=== PATIENT | female | born 1950 | race Caucasian/White ===

== ENCOUNTER → 2017-07-14 | Outpatient (CLI) | payer MEDICARE, BC ==
--- NOTE | 2017-07-16 11:42 | MM ---
Reason for exam: screening (asymptomatic). Last mammogram was performed 1 year and 8 months ago. History: Patient is postmenopausal. Cancelled Left Mammotome of the left breast, September 06, 2006. Took estrogen for 7 years 7 months beginning at age 50. Took progesterone for 7 years 7 months beginning at age 50. Physical Findings: A clinical breast exam by your physician is recommended on an annual basis and results should be correlated with mammographic findings. MG 3D Screening Mammo W/Cad Bilateral CC and MLO view(s) were taken. Prior study comparison: November 14, 2015, bilateral MG 3d screening mammo w/cad. September 11, 2014, bilateral MG screening mammo w CAD. There are scattered fibroglandular densities. No significant changes when compared with prior studies. ASSESSMENT: Negative, BI-RAD 1 RECOMMENDATION: Routine screening mammogram of both breasts in 1 year.
== END | disposition home or self-care (01) ==
LOC: RADMAMWWP 13:23
PROVIDERS: ATTEND Family Medicine
DX: Z12.31 Encounter for screening mammogram for malignant neoplasm of breast (principal)
CPT/HCPCS: 77063; 77067

== ENCOUNTER → 2018-07-01 | Day surgery (SDC) | payer BC, MEDICARE ==
[2018-06-30 09:32] VITALS: BMI 25.3
[~2018-07-01] MED LIST: LACTATED RINGERS 1,000 ML IV SCH; LIDOCAINE 1% 20 ML VIAL (10MG/ML) FOR IV START INTRADERMA PRN; PROPOFOL 10 MG/ML 20 ML VIAL IV ONE
[2018-07-01 08:50] VITALS: TEMP 97.6
--- NOTE | 2018-07-01 10:14 | P.PCN ---
Date of Procedure: 07/01/18 Procedure(s) Performed: BRIEF HISTORY: Patient is a 67-year-old pleasant 8 female, scheduled for an elective colonoscopy as a part of evaluation of long-standing history of ulcerative colitis/proctitis diagnosed in 2006. She remains in clinical remission. PROCEDURE PERFORMED: Colonoscopy with random biopsies. PREOPERATIVE DIAGNOSIS: Long-standing history of ulcerative colitis/proctitis. IV sedation per Anesthesia. PROCEDURE: After informed consent was obtained, the patient, was brought into the endoscopy unit. IV sedation was administered by Anesthesia under continuous monitoring. Digital rectal examination was normal. Initially the Olympus CF-160 flexible video colonoscope was then inserted in the rectum, gradually advanced into the cecum without any difficulty. Careful examination was performed as the scope was gradually being withdrawn. Ileocecal valve and the appendiceal orifice were visualized and appeared normal. Prep was excellent. Mucosa of the cecum, ascending colon, transverse colon, descending colon, sigmoid colon, and rectum appeared normal. Retroflexion was performed in the rectum and no lesions were seen. Random biopsies were done at every 10 cm intervals from the cecum to the rectum. The patient tolerated the procedure well. IMPRESSION: Normal-appearing colon from rectum to cecum with no evidence of active colitis or colorectal neoplasia . RECOMMENDATIONS: Findings of this examination were discussed with the patient as well as a family. She was advised to follow with the biopsy results and if the biopsy is negative and have a repeat colonoscopy in 2 years.
[2018-07-01 10:34] VITALS: BP 128/72; PULSE 77; RESP 16
== END | disposition home or self-care (01) ==
LOC: ORWHC2ENDO 08:32
PROVIDERS: ATTEND Internal Medicine Gastroenterology
DX: K52.9 Noninfective gastroenteritis and colitis, unspecified (principal); K62.89 Other specified diseases of anus and rectum; I10 Essential (primary) hypertension; Z87.891 Personal history of nicotine dependence; E78.5 Hyperlipidemia, unspecified; M79.7 Fibromyalgia; M19.90 Unspecified osteoarthritis, unspecified site; Z79.1 Long term (current) use of non-steroidal anti-inflammatories (NSAID); Z79.899 Other long term (current) drug therapy
CPT/HCPCS: 88305; 45380; J2704

== ENCOUNTER → 2018-08-05 | Outpatient (CLI) | payer MEDICARE ==
[2018-08-05 13:48] LABS: Appearance,Urine Clear (Clear); Bilirubin,Urine Negative (Negative); Blood,Urine Negative (Negative); Color,Urine Yellow; Glucose,Urine (UA) Negative (Negative); HCT 41.5 % (34.0-46.0); HGB 13.4 gm/dL (11.4-16.0); Ketones,Urine Negative (Negative); Leukocyte Esterase,Urine Negative (Negative); MCH 30.6 pg (25.0-35.0); MCHC 32.4 g/dL (31.0-37.0); MCV 94.7 fL (80.0-100.0); Mean Platelet Volume 7.5; Nitrite,Urine Negative (Negative); Platelet Count 224 k/uL (150-450); Protein,Urine Negative (Negative); RBC 4.38 m/uL (3.80-5.40); RDW 13.5 % (11.5-15.5); Specific Gravity,Urine 1.018 (1.001-1.035); Urobilinogen,Urine <2.0 mg/dL (<2.0); WBC 5.7 k/uL (3.8-10.6)
[2018-08-05 13:55] LABS: INR 0.9 (<1.2); Partial Thromboplastin Time 23.9 sec (22.0-30.0); Prothrombin Time 9.8 sec (9.0-12.0)
[2018-08-05 13:56] LABS: Albumin 4.4 g/dL (3.5-5.0); Potassium 3.9 mmol/L (3.5-5.1); Total Bilirubin 0.5 mg/dL (0.2-1.3); Total Protein 7.2 g/dL (6.3-8.2)
== END | disposition home or self-care (01) ==
LOC: LABPAT 12:37
PROVIDERS: ATTEND Orthopaedic Surgery
DX: Z01.812 Encounter for preprocedural laboratory examination (principal); Z51.81 Encounter for therapeutic drug level monitoring; Z79.01 Long term (current) use of anticoagulants
CPT/HCPCS: 36415; 80053; 81003; 85027; 85610; 85730; 87070

== ENCOUNTER 2018-08-16 08:05 | Inpatient (IN) | payer MEDICARE ==
[~2018-08-16 08:05] MED LIST changes: +HYDROmorphone 0.5 MG/0.5 ML SYRINGE IVP PRN; -LIDOCAINE 1% 20 ML VIAL (10MG/ML) FOR IV START INTRADERMA PRN; +MIDAZOLAM 2 MG/2 ML VIAL IV PRN; -PROPOFOL 10 MG/ML 20 ML VIAL IV ONE; +ROPIVACAINE 246.25 MG, EPINEPHrine 0.5 MG, KETOROLAC 30 MG, cloNIDine HCL/PF 80 MCG, WA... MISCELLANE ONE; +SCOPOLAMINE 1.5MG/72HR PATCH TRANSDERM ONE; +TRANEXAMIC ACID 1,000 MG in SODIUM CHLORIDE 0.9% 100 ML IVPB ONE; +ceFAZolin IN SWFI 2 GM/20 ML SYRINGE IVP ONE
[2018-08-16] MEDS: ACETAMINOPHEN TAB 500 MG TAB PO ONE ×2 (10:47→17:12)
[2018-08-16] MEDS: ONDANSETRON 4 MG/2 ML VIAL IVP ONE ×2 (10:48→17:13)
[2018-08-16] MEDS: MELOXICAM 7.5 MG TAB PO ONE ×2 (10:48→17:12)
[2018-08-16] MEDS: DEXAMETHASONE SOD PHOSPHATE 10 MG/ML 1 ML VIAL IV ONE ×2 (10:48→17:12)
[2018-08-16] MEDS ORDERED: fentaNYL (PF) 50 MCG/ML 2 ML AMP IVP ONE (10:59)
[2018-08-16] MEDS ORDERED: ROPIVACAINE 1,100 MG, SODIUM CHLORIDE 0.9% 500 ML 330 ML MISCELLANE PRN ×2 (11:14)
--- NOTE | 2018-08-16 11:14 | P.ONQ ---
Anesthesiology Proc Note - PNB - Peripheral Nerve Block Performed Right Adductor Canal Infusion Time Out Performed: Yes Procedure Start Time: 10:56 Procedure Stop Time: 11:10 Indication: Acute Post-Operative Pain, Requested by physician (Dr Richardson) Sedation Type: Sedate with meaningful contact maintained Preparation: Sterile Dressing Position: Supine Catheter: Indwelling Needle Types: On-Q Needle Size: 100mm (4") Needle Gauge: 20 Technique: Ultrasound Injectate: 0.5% Ropivacaine (see comment for volume) (30 mls) Blood Aspirated: No Pain Paresthesia on Injection Noted: No Resistance on Injection: Normal Events: Uneventful and Well Tolerated
[2018-08-16] MEDS ORDERED: ROPIVACAINE 246.25 MG, EPINEPHrine 0.5 MG, KETOROLAC 30 MG, WATER FOR INJECTION,STERILE... MISCELLANE ONE ×4 (11:15)
[2018-08-16] MEDS ORDERED: hydrOXYzine PAMOATE 25 MG CAP PO PRN (11:36)
[2018-08-16] MEDS ORDERED: NALOXONE 0.4 MG/ML 1 ML VIAL IV PRN (11:36)
[2018-08-16] MEDS ORDERED: BISACODYL 10 MG SUPP RECTAL PRN (11:36)
[2018-08-16] MEDS ORDERED: ONDANSETRON 4 MG/2 ML VIAL IVP PRN (11:36)
[2018-08-16] MEDS ORDERED: NA PHOS,M-B/NA PHOS,DI-BA 133 ML ENEMA RECTAL PRN (11:36)
[2018-08-16] MEDS ORDERED: MAGNESIUM HYDROXIDE 2,400 MG/10 ML CUP PO PRN (11:36)
[2018-08-16] MEDS ORDERED: HYDROmorphone 0.5 MG/0.5 ML SYRINGE IVP PRN ×3 (11:36)
[2018-08-16] MEDS ORDERED: HYDROcodone/APAP 5-325MG 1 EACH TAB PO PRN ×2 (11:36)
[2018-08-16] MEDS ORDERED: DIAZEPAM 5 MG TAB PO PRN (11:36)
[2018-08-16] MEDS ORDERED: TRANEXAMIC ACID 1,000 MG/10 ML VIAL ONE (11:37)
[2018-08-16] MEDS ORDERED: SODIUM CHLORIDE 0.9% 100 ML BAG ONE (11:37)
[2018-08-16] MEDS ORDERED: fentaNYL (PF) 50 MCG/ML 2 ML AMP ONE (11:37)
[2018-08-16] MEDS ORDERED: PROPOFOL 10 MG/ML 20 ML VIAL IV ONE (11:37)
[2018-08-16] MEDS ORDERED: ePHEDrine SULFATE/0.9% NACL/PF 50 MG/5 ML SYRINGE IV ONE (11:37)
[2018-08-16] MEDS ORDERED: MIDAZOLAM 2 MG/2 ML VIAL ONE (11:37)
--- NOTE | 2018-08-16 12:59 | P.OP ---
Date of Procedure: 08/16/18 Preoperative Diagnosis: Severe osteoarthritis right knee Postoperative Diagnosis: Severe osteoarthritis right knee Procedure(s) Performed: Right total knee arthroplasty Implants: Arguelles and Nephew Journey II CR Oxinium cruciate retaining femoral component size 5, right Arguelles [employer] Nephew Journey right nonporous tibial baseplate size 4 Arguelles [employer] Nephew Journey II, XLPE Deep Dished articular insert, size 9 mm, Size 3- 4 right Ar[employer]elles [employer] Nephew Journey BCS resurfacing oval patellar component, 29 mm All components were cemented using Palacos R bone cement.. The articulation is Oxinium on polyethylene. Anesthesia: spinal Surgeon: Isai Richardson Traffic Operator #1: Lindsay Cai Estimated Blood Loss (ml): 50 Pathology: other (Bone and cartilage) Condition: stable Disposition: PACU Indications for Procedure: After failure of conservative treatment we discussed the surgical and nonsurgical treatment options at length. Patient wishes to proceed with a total knee arthroplasty. Complications specific to this procedure were discussed at length, including but not limited to infection, bleeding, stiffness, and nerve injury. Patient is aware of all these complications and informed consent was obtained Operative Findings: Operative findings are consistent with severe osteoarthritis the right knee Description of Procedure: Patient was seen in the preoperative area consent was reviewed and operative site was marked with a skin marker. An adductor canal pain catheter was placed by anesthesia in the preoperative area. Patient was then brought to the operating room and given preoperative antibiotics intravenously. A spinal anesthetic was administered by the anesthesia department. A tourniquet was placed on the upper thigh and the lower extremity was prepped and draped in usual sterile fashion. A gram of transexamic acid was given. A universal timeout was then performed which confirmed the patient's name, surgical site, ALLERGIES, and consent. The lower extremity was then exsanguinated and tourniquet was inflated to 250 mmHg. A standard and anterior midline approach to the knee was performed. The skin and subcutaneous tissue was dissected down to the patellar tendon. A medial parapatellar arthrotomy was then performed. The knee was then extended, the patellar was everted, and the knee was again flexed. Anterior horns of both menisci were excised, and a release was performed to the posterior medial aspect of the knee. On gross visual inspection, there was complete loss of articular cartilage in the medial and patellofemoral joint spaces. There was also significant cartilage damage in the lateral compartment. There were multiple periarticular osteophytes which were then removed with a Ronguer. The femoral canal was then opened with the appropriate drill, and the intramedullary femoral cutting guide was then placed and set for 5 of valgus. The distal femoral cutting block was then pinned in place, and the distal femur was then cut. The cutting block was then removed and the cut was checked for flatness. Next, the sizing guide was then placed and set for 3 external rotation based off of the epicondylar axis and Whitesides line. After the femur was sized, the appropriate 4-in-1 cutting block was then pinned in place. The anterior condyles were cut without notching. The posterior and chamfer cuts were performed while protecting the collateral ligaments. The cutting block was then removed, and the femoral canal was plugged with autologous bone. Attention was then directed to the tibia. The remaining ACL was removed with a Ronguer, and the tibia was then gently subluxed forward with a large bent knee retractor. Any remaining menisci was excised. The posterior lateral corner was cauterized in order to cauterize the lateral geniculate artery. The extra medullary tibial cutting guide was then placed, set for the appropriate rotation, slope, and depth of resection. The proximal tibia cutting guide was then pinned in place. Proximal tibia was then cut and sized. Next trials were then placed with the appropriate-sized insert. The knee was able to fully extend and flex to 130 and was stable throughout all range of motion. The knee was then extended, patella everted. Patella was then measured, and then using an osteotomy guide, the patella was cut at the appropriate level. The patella was then measured and drilled and the patella trial was then placed. The knee was then taken through range of motion with the patella trial and the patella tracked normally. The knee was then extended patella trial was then removed and the patella was everted. Knee was then flexed and lug holes were drilled through the femoral trial and the femoral trial was then removed. The tibial was then exposed, and the tibial broach guide was then pinned in place after it was set for the appropriate rotation to allow for the most coverage without overhang. The tibia was then reamed and broached. The cut surfaces of bone were then irrigated with pulsatile lavage. The posterior structures were injected with the ropivacaine solution. The knee was also irrigated with Irrisept solution. The components were then opened, the cement was mixed, and the components were then cemented in place. The cement was allowed to harden with the knee in full extension. While the cement was hardening, the remaining soft tissues were then injected with a ropivacaine solution, which consisted of 246.25 mg of ropivacaine, 0.5 mg of epinephrine, 30 mg of Toradol, 80 g of clonidine, and 48.45 mL of sterile water, for a total of 100 mL of fluid injected. After the cemented hardened. The tourniquet was released, and hemostasis was obtained. A second gram of transexamic acid was given. The knee was again irrigated. The knee was again taken through range of motion and found to be stable throughout all range of motion of 0-130, and the patella tracked normally. The fascia was then closed with #2 strata fix suture. The subcutaneous tissue was closed with 3-0 Vicryl and 3-0 strata fix. Dermabond glue was used for the skin and placed with the knee in flexion. The patient was placed in a sterile silver dressing. Patient was then transferred to recovery room in stable condition. The assistant program manager CHANTELL Burgos was required due the complexity surgery and the need for a skilled surgical scrub technologist. She assisted in positioning, draping, retraction, and closure of the wound.
[2018-08-16] MEDS ORDERED: LACTATED RINGERS 1,000 ML IV ONE (13:20)
--- NOTE | 2018-08-16 13:55 | XR ---
EXAMINATION TYPE: XR knee limited RT DATE OF EXAM: 08/16/2018 CLINICAL HISTORY: Right knee pain and arthritis status post total knee replacement. TECHNIQUE: Portable AP and crosstable lateral views of the right knee are obtained immediately posto peratively. COMPARISON: None FINDINGS: Metallic hardware from total right knee arthroplasty is seen and appears satisfactory in a lignment and position. There is evidence of recent surgery with diffuse subcutaneous gas and soft ti ssue swelling noted. IMPRESSION: METALLIC HARDWARE FROM TOTAL RIGHT KNEE ARTHROPLASTY IS SATISFACTORY IN ALIGNMENT.
[2018-08-16 16:43] VITALS: BMI 25.8
[2018-08-16] MEDS: SODIUM CHLORIDE 0.9% 1,000 ML IV SCH ×2 (17:13→23:35)
[2018-08-16] MEDS: ASPIRIN 325 MG TAB PO SCH (20:22)
[2018-08-16] MEDS ORDERED: SENNOSIDES-DOCUSATE SODIUM 1 EACH TAB PO SCH (21:00)
[2018-08-16] MEDS: ceFAZolin IN SWFI 2 GM/20 ML SYRINGE IVP SCH (21:27)
[2018-08-16] MEDS ORDERED: ATORVASTATIN 10 MG TAB PO SCH (21:45)
[2018-08-16] MEDS ORDERED: ZOLPIDEM 5 MG TAB PO SCH (21:45)
[2018-08-16] MEDS ORDERED: BALSALAZIDE DISODIUM 750 MG CAPSULE PO SCH (22:00)
[2018-08-17 05:08] VITALS: RESP 16
[2018-08-17 08:01] VITALS: BP 130/72; PULSE 74; TEMP 98.4
[2018-08-17] MEDS: ASPIRIN 325 MG TAB PO SCH (08:06)
[2018-08-17] MEDS: ceFAZolin IN SWFI 2 GM/20 ML SYRINGE IVP SCH (08:08)
[2018-08-17 08:53] LABS: Basophils % (A) 0 %; Eosinophils % (A) 0 %; HCT 35.2 % (34.0-46.0); HGB 11.7 gm/dL (11.4-16.0); Lymphocytes % (A) 7 %; MCH 31.2 pg (25.0-35.0); MCHC 33.2 g/dL (31.0-37.0); MCV 93.9 fL (80.0-100.0); Mean Platelet Volume 8.3; Monocytes # (A) 0.7 k/uL (0-1.0); Monocytes % (A) 5 %; Neutrophils # (A) 11.7 k/uL (1.3-7.7); Neutrophils % (A) 87 %; Platelet Count 212 k/uL (150-450); RBC 3.75 m/uL (3.80-5.40); RDW 14.2 % (11.5-15.5); WBC 13.5 k/uL (3.8-10.6)
--- NOTE | 2018-08-17 08:53 | P.DS ---
Providers Date of admission: 08/16/18 10:08 Expected date of discharge: 08/17/18 Attending physician: Isai Richardson Consults: 08/16/18 11:36 Consult Physician Routine Consulting Provider: Edmund Fernandez III Consult Reason/Comments: medical management Do you want consulting provider notified?: Yes 08/16/18 16:18 Consult Physician Routine Consulting Provider: Reba Anderson Consult Reason/Comments: medical managment Do you want consulting provider notified?: Yes Primary care physician: Edmund Fernandez - Discharge Diagnosis(es) (1) Osteoarthritis of right knee Current Visit: Yes Status: Acute (2) S/P total knee arthroplasty Current Visit: Yes Status: Acute Hospital Course: This is a 67-year-old female with known history of degenerative arthritis of the right knee. The patient presents for evaluation. After discussion and consideration patient elects to proceed with total knee arthroplasty. The patient is seen preoperatively by Dr. Richardson and medically cleared for surgery by their primary care physician. Patient is admitted to [facility] on 08/16/2018 for total knee arthroplasty. The procedures performed without complication or sequelae. The patient is doing well postoperatively. Labs and vital signs are stable on day of discharge. On day of discharge patient's knee incision is healing well. There is minimal erythema. There is no drainage noted at this time. There is minimal soft tissue swelling to the knee. Patient has full foot and ankle motion without difficulty or pain. Calf is soft and nontender to palpation. Neurovascular status to the right lower extremity is intact. Patient is discharged home in good condition. Opioid start talking form is reviewed and signed at patient bedside. Please see med rec for accurate list of home medications. Plan - Discharge Summary Discharge Rx Participant: No New Discharge Prescriptions: New Aspirin 325 mg PO BID #60 tab HYDROcodone/APAP 5-325MG [[place] 5-325] 1 - 2 tab PO Q6HR PRN #56 tab PRN Reason: Pain Sennosides [Senokot] 1 tab PO BID #60 tablet No Action Zolpidem Tartrate [Ambien] 5 mg PO HS Hydrochlorothiazide [Hydrodiuril] 25 mg PO DAILY Metoprolol Succinate [Toprol Xl] 50 mg PO DAILY Simvastatin [Zocor] 10 mg PO HS Meloxicam [Mobic] 15 mg PO DAILY Mesalamine [Lialda] 2.4 gm PO BID Cyclobenzaprine [Flexeril] 5 mg PO HS PRN PRN Reason: Pain predniSONE 10 mg PO DAILY PRN PRN Reason: colitis flare up traMADol HCL [Ultram] 50 mg PO Q6HR PRN PRN Reason: Pain Meclizine [Antivert] 25 mg PO TID PRN PRN Reason: Vertigo Discharge Medication List Cyclobenzaprine [Flexeril] 5 mg PO HS PRN 06/30/18 [History] Hydrochlorothiazide [Hydrodiuril] 25 mg PO DAILY 06/30/18 [History] Meloxicam [Mobic] 15 mg PO DAILY 06/30/18 [History] Mesalamine [Lialda] 2.4 gm PO BID 06/30/18 [History] Metoprolol Succinate [Toprol Xl] 50 mg PO DAILY 06/30/18 [History] Simvastatin [Zocor] 10 mg PO HS 06/30/18 [History] Zolpidem Tartrate [Ambien] 5 mg PO HS 06/30/18 [History] Meclizine [Antivert] 25 mg PO TID PRN 08/11/18 [History] predniSONE 10 mg PO DAILY PRN 08/11/18 [History] traMADol HCL [Ultram] 50 mg PO Q6HR PRN 08/11/18 [History] Aspirin 325 mg PO BID #60 tab 08/17/18 [Rx] HYDROcodone/APAP 5-325MG [[place] 5-325] 1 - 2 tab PO Q6HR PRN #56 tab 08/17/18 [Rx] Sennosides [Senokot] 1 tab PO BID #60 tablet 08/17/18 [Rx]
[2018-08-17] MEDS ORDERED: MELOXICAM 7.5 MG TAB PO SCH ×2 (09:00)
[2018-08-17] MEDS ORDERED: METOPROLOL SUCCINATE (ER) 50 MG TAB.ER.24H PO SCH (09:00)
[2018-08-17] MEDS ORDERED: MECLIZINE 25 MG TAB PO PRN (09:00)
[2018-08-17] MEDS ORDERED: HYDROCHLOROTHIAZIDE 25 MG TAB PO SCH (09:00)
--- NOTE | 2018-08-17 13:29 | P.PN ---
Progress Note - Text Anesthesia POD 1. Patient is status post right under spinal anesthesia with a right adductor canal catheter placed for postoperative pain relief. With ropivacaine 0.2% running at 8 cc's per hour, the patient's VAS is (2, 4). Catheter site is clean dry and intact.
[2018-08-17] MEDS ORDERED: CYCLOBENZAPRINE 5 MG TAB PO PRN (21:00)
--- NOTE | 2018-08-17 21:08 | CONS ---
CONSULTATION DATE OF SERVICE: 08/16/2018 REASON FOR CONSULTATION: Advice regarding hypertension, hyperlipidemia, and multiple other medical issues, requested by Orthopedic Surgery. HISTORY OF PRESENT ILLNESS: This 67-year-old woman with a past medical history of multiple medical problems, including hypertension, hyperlipidemia, history of DJD, history of cholecystectomy, being followed by Dr. Fernandez in the outpatient setting, underwent right total knee arthroplasty by Dr. Richardson. There is no history of any fever, rigor or chills. No history of headache, chest pain, palpitations, shortness of breath, hematochezia, melena at this time. PAST MEDICAL HISTORY: 1. DJD. 2. History of hypertension. 3. Hyperlipidemia. 4. History of cholecystectomy. HOME MEDICATIONS: 1. Ultram 50 mg q.6 p.r.n. 2. Prednisone 10 mg daily p.r.n. 3. Ambien 5 mg at bedtime. 4. Zocor 10 mg at bedtime. 5. Toprol-XL 50 mg p.o. daily. 6. Lialda 2.4 grams p.o. b.i.d. 7. Mobic 15 mg p.o. daily. 8. Antivert 25 mg t.i.d. p.r.n. 9. HydroDIURIL 25 mg p.o. daily. 10.Flexeril 5 mg at bedtime. 11.Senokot-S 1 tablet p.o. b.i.d. 12.[place] 5 mg q.6 p.r.n. 13.Aspirin 325 mg p.o. b.i.d. ALLERGIES: NONE. FAMILY HISTORY: History of cancer in the family. SOCIAL HISTORY: Previous history of smoking. No current smoking or alcohol intake. REVIEW OF SYSTEMS: ENT: No diminished hearing. No diminished vision. CARDIOVASCULAR SYSTEM: No angina, palpitations. RESPIRATORY SYSTEM: No cough, hemoptysis. GI: No nausea, vomiting. : No dysuria or retention. NERVOUS SYSTEM: No numbness, weakness. ALLERGY/IMMUNOLOGY: No asthma, hayfever. MUSCULOSKELETAL: As mentioned earlier. HEMATOLOGY/ONCOLOGY: No history of anemia. ENDOCRINE: As mentioned earlier. CONSTITUTIONAL: As mentioned earlier. DERMATOLOGY: Negative. RHEUMATOLOGY: As mentioned earlier. PSYCHIATRY: As mentioned earlier. PHYSICAL EXAMINATION: Patient is alert and oriented x3. Pulse is 85, blood pressure 120/76, respiration 17, temperature 98.4, pulse ox 92% on room air. HEENT: Conjunctivae normal. NECK: No jugular venous distention. No carotid bruit. No lymph node enlargement. CARDIOVASCULAR SYSTEM: S1, S2 muffled. RESPIRATORY SYSTEM: Breath sounds diminished at the bases. No rhonchi. No crackles. ABDOMEN: Soft, non-tender. No mass palpable. LEGS: Status post right total knee arthroplasty. NERVOUS SYSTEM: Higher functions as mentioned earlier. Moves all 4 limbs. No focal motor or sensory deficit. LYMPHATICS: No lymph node palpable in neck, axillae or groin. SKIN: No ulcer, rash, bleeding. JOINTS: As mentioned earlier. LABS: Not available. ASSESSMENT: 1. Status post right total knee arthroplasty. 2. History of fibromyalgia. 3. Hypertension. 4. Hyperlipidemia. 5. Degenerative joint disease. 6. Cholecystectomy. 7. History of degenerative joint disease. 8. Remote history of nicotine dependence. RECOMMENDATIONS AND DISCUSSION: In this 67-year-old woman who presented with multiple medical issues, at this time I would recommend to continue current medications, symptomatic treatment. Resume the home medications. DVT prophylaxis. Incentive spirometry. Closely follow with Orthopedic Surgery. Further recommendations to follow. MMODL / IJN: [id number] /
--- NOTE | 2018-08-17 21:39 | PN ---
PROGRESS NOTE DATE OF SERVICE: 08/17/2018 This 67-year-old woman who was admitted after right total knee arthroplasty. The patient has improved significantly. No chest pain. No palpitations. No fever. EXAM: The patient is alert and oriented times three. Pulse 74, blood pressure 130/70, respiration 16, temperature 98.4, pulse ox 98% on room air. HEENT: Conjunctivae normal. Oral mucosa moist. NECK is no jugular venous distention. No carotid bruit. No lymph node enlargement. CARDIOVASCULAR: S1, S2 muffled. RESPIRATION: Breath sounds diminished in the bases. No rhonchi. No crackles. ABDOMEN: Soft. No mass palpable. LEGS: Status post knee arthroplasty. NERVOUS SYSTEM: Higher functions as mentioned earlier. Moves all four extremities. No focal deficits. SKIN: No ulcer, rash or bleeding. JOINTS: No active deforming arthropathy. LAB STUDIES: WBC 13.1. ASSESSMENT: 1. Status post right total knee joint arthroplasty. 2. high wbc possibly reactive. 3. Fibromyalgia. 4. Hypertension. 5. Hyperlipidemia. 6. History of degenerative joint disease. 7. History of palpitations. 8. Remote history of nicotine dependence. 9. FULL CODE. RECOMMENDATIONS AND DISCUSSION: In this 67-year-old woman who presented with multiple complex medical issues, we will monitor the patient closely, continue the current medications, management and symptomatic treatment. Otherwise at this time, DVT prophylaxis, incentive spirometry, resume the home medications. Further recommendations to follow. See orders for further details. MMODL / IJN: [id number] / MTDKimberly
== END 2018-08-17 13:28 | disposition home health service (06) | DRG 470 ==
LOC: 2ORMAIN 10:08 → 4SSUR 16:17
PROVIDERS: ADMIT Orthopaedic Surgery; ATTEND Orthopaedic Surgery
PROC: 0SRC069 Replacement of Right Knee Joint with Oxidized Zirconium on Polyethylene Synthetic Substitute, Cemented, Open Approach (ICD-10-PCS; principal; 2018-08-16 12:50)
DX: M17.11 Unilateral primary osteoarthritis, right knee (principal); K51.90 Ulcerative colitis, unspecified, without complications; E78.5 Hyperlipidemia, unspecified; M21.061 Valgus deformity, not elsewhere classified, right knee; I34.0 Nonrheumatic mitral (valve) insufficiency; M79.7 Fibromyalgia; I10 Essential (primary) hypertension; Z79.1 Long term (current) use of non-steroidal anti-inflammatories (NSAID); Z79.52 Long term (current) use of systemic steroids; Z79.899 Other long term (current) drug therapy; Z98.51 Tubal ligation status; Z87.891 Personal history of nicotine dependence; Z82.49 Family history of ischemic heart disease and other diseases of the circulatory system; Z80.9 Family history of malignant neoplasm, unspecified; Z90.49 Acquired absence of other specified parts of digestive tract
CPT/HCPCS: 85025; 88300

== ENCOUNTER → 2018-12-21 | Outpatient (CLI) | payer MEDICARE ==
[2018-12-21 18:45] LABS: ALT 15 U/L (8-44); AST 19 U/L (13-35); African American GFR (CKD) 75.6 (60.0-200.0); Albumin/Globulin Ratio 2.33 (1.60-3.17); Alkaline Phosphatase 66 U/L (41-126); Bilirubin, Conjugated <0.20 mg/dL (0.20-0.40); Calcium 9.6 mg/dL (8.7-10.3); Carbon Dioxide 31.6 mmol/L (21.6-31.8); Chloride 102 mmol/L (96-109); Cholesterol 205 mg/dL (0-200); Globulin 1.8 g/dL (1.6-3.3); Glucose 75 mg/dL (70-110); LDL Cholesterol,Calculated 90.4 mg/dL (0.0-131.0); Potassium 3.3 mmol/L (3.5-5.5); Sodium 146 mmol/L (135-145); Total Bilirubin 0.4 mg/dL (0.2-1.2)
[2018-12-21 22:28] LABS: Hemoglobin A1C 5.9 % (4.0-6.0)
== END | disposition home or self-care (01) ==
LOC: LABWHC1 11:49
PROVIDERS: ATTEND Nuclear Medicine Nuclear Cardiology
DX: E78.2 Mixed hyperlipidemia (principal); E11.8 Type 2 diabetes mellitus with unspecified complications
CPT/HCPCS: 36415; 80048; 80061; 80076; 83036

== ENCOUNTER → 2019-09-01 | Outpatient (CLI) | payer MEDICARE | LOC: LABWHC1 10:40 | PROVIDERS: ATTEND Physical Medicine & Rehabilitation | DX: Z11.59 Encounter for screening for other viral diseases (principal) ==

== ENCOUNTER → 2019-11-24 | Outpatient (CLI) | payer MEDICARE ==
[2019-11-24 19:33] LABS: Albumin 4.2 g/dL (3.80-4.90); Albumin/Globulin Ratio 2.1 (1.60-3.17); Anion Gap 8.6 mmol/L (4.00-12.00); BUN/Creat Ratio 15.83 Ratio (12.00-20.00); Calcium 9.8 mg/dL (8.7-10.3); Carbon Dioxide 30.4 mmol/L (21.6-31.8); Non-African American GFR(CKD) 45.8 (60.0-200.0); Potassium 3.6 mmol/L (3.5-5.5); Total Bilirubin 0.4 mg/dL (0.2-1.2); Total Protein 6.2 g/dL (6.2-8.2)
== END | disposition home or self-care (01) ==
LOC: LABWHC1 13:42
PROVIDERS: ATTEND Nurse Practitioner Family
DX: I10 Essential (primary) hypertension (principal)
CPT/HCPCS: 36415; 80053

== ENCOUNTER → 2020-05-03 | Outpatient (CLI) | payer MEDICARE ==
--- NOTE | 2020-05-06 10:10 | MM ---
Reason for exam: screening (asymptomatic). Last mammogram was performed 2 years and 10 months ago. History: Patient is postmenopausal. Cancelled Left Mammotome of the left breast, September 06, 2006. Took estrogen for 7 years 7 months beginning at age 50. Took progesterone for 7 years 7 months beginning at age 50. Physical Findings: A clinical breast exam by your physician is recommended on an annual basis and results should be correlated with mammographic findings. MG 3D Screening Mammo W/Cad Bilateral CC and MLO view(s) were taken. Prior study comparison: July 14, 2017, bilateral MG 3d screening mammo w/cad. November 14, 2015, bilateral MG 3d screening mammo w/cad. The breast tissue is heterogeneously dense. This may lower the sensitivity of mammography. There is no discrete abnormality. No significant changes when compared with prior studies. ASSESSMENT: Benign, BI-RAD 2 RECOMMENDATION: Routine screening mammogram of both breasts in 1 year.
== END | disposition home or self-care (01) ==
LOC: RADMAMWWP 14:57
PROVIDERS: ATTEND Internal Medicine
DX: Z12.31 Encounter for screening mammogram for malignant neoplasm of breast (principal)
CPT/HCPCS: 77063; 77067

== ENCOUNTER 2022-10-13 10:22 | Day surgery (SDC) | payer MEDICARE ==
[~2022-10-13 10:22] MED LIST changes: -HYDROmorphone 0.5 MG/0.5 ML SYRINGE IVP PRN; +LIDOCAINE 1% (10MG/ML) FOR IV START INTRADERMA PRN; -MIDAZOLAM 2 MG/2 ML VIAL IV PRN; -ROPIVACAINE 246.25 MG, EPINEPHrine 0.5 MG, KETOROLAC 30 MG, cloNIDine HCL/PF 80 MCG, WA... MISCELLANE ONE; -SCOPOLAMINE 1.5MG/72HR PATCH TRANSDERM ONE; -TRANEXAMIC ACID 1,000 MG in SODIUM CHLORIDE 0.9% 100 ML IVPB ONE; -ceFAZolin IN SWFI 2 GM/20 ML SYRINGE IVP ONE
[2022-10-13 11:41] VITALS: TEMP 97.2
[2022-10-13] MEDS ORDERED: PROPOFOL 10 MG/ML 20 ML VIAL IV ONE (12:31)
--- NOTE | 2022-10-13 12:44 | P.PCN ---
Date of Procedure: 10/13/22 Procedure(s) Performed: BRIEF HISTORY: Patient is a 71-year-old pleasant white female scheduled for an elective colonoscopy as a part of long-standing history of ulcerative colitis was diagnosed in 2069. She is in clinical remission. He is maintained on Lialda 2 tablets daily. PROCEDURE PERFORMED: Colonoscopy with random biopsy. PREOPERATIVE DIAGNOSIS: Long-standing history of ulcerative colitis. IV sedation per Anesthesia. PROCEDURE: After informed consent was obtained, the patient, was brought into the endoscopy unit. IV sedation was administered by Anesthesia under continuous monitoring. Digital rectal examination was normal. Initially the Olympus CF-160 flexible video colonoscope was then inserted in the rectum, gradually advanced into the cecum without any difficulty. Careful examination was performed as the scope was gradually being withdrawn. Ileocecal valve and the appendiceal orifice were visualized and appeared normal. Prep was excellent. Mucosa of the cecum, ascending colon, transverse colon, descending colon, sigmoid colon, and rectum appeared normal. Random biopsies were done from the cecum to rectum at every 10 cm intervals to rule out dysplasia. Retroflexion was performed in the rectum and no lesions were seen. Scattered sigmoid diverticulosis. The patient t olerated the procedure well. IMPRESSION: Normal-appearing colon from rectum to cecum no evidence of colorectal neoplasia.. Scattered sigmoid diverticula RECOMMENDATIONS: Findings of this examination were discussed with the patient as well as a family. She was advised to follow with the biopsy results. If the biopsy does not show any evidence of dysplasia, she can have a repeat colonoscopy in 2 years..
[2022-10-13 13:13] VITALS: BP 148/68; PULSE 54; RESP 20
== END 2022-10-13 13:36 ==
LOC: ORWHC2ENDO 10:22
PROVIDERS: ATTEND Internal Medicine Gastroenterology
DX: K51.00 Ulcerative (chronic) pancolitis without complications (principal); K57.30 Diverticulosis of large intestine without perforation or abscess without bleeding; Z79.899 Other long term (current) drug therapy; I10 Essential (primary) hypertension; E78.5 Hyperlipidemia, unspecified; Z87.891 Personal history of nicotine dependence; Z98.890 Other specified postprocedural states
CPT/HCPCS: 88305; 45380; J2704

== ENCOUNTER → 2023-03-17 | Outpatient (CLI) | payer MEDICARE ==
--- NOTE | 2023-03-18 11:56 | MM ---
Reason for Exam: Screening (asymptomatic). Last mammogram was performed 2 year(s) and 11 month(s) ago. Patient History: Menarche at age 10. First Full-Term at age 18. Postmenopausal. Estrogen, starting at age 50 for 7 years, 7 months. Progesterone, starting at age 50 for 7 years, 7 months. 09/06/2006, Cancelled Left Mammotome on the left side. Sister had breast cancer, age 68. Risk Values: Brenda 5 year model risk: 3.6%. NCI Lifetime model risk: 8.7%. Prior Study Comparison: 09/11/2014 Bilateral Screening Mammogram, [facility]. 11/14/2015 Bilateral Screening Mammogram, [facility]. 07/14/2017 Bilateral Screening Mammogram, [facility]. 05/03/2020 Bilateral Screening Mammogram, [facility]. Tissue Density: There are scattered fibroglandular densities. Findings: Analyzed By CAD. There is no suspicious group of microcalcifications or new suspicious mass. Overall Assessment: Negative, BI-RAD 1 Management: Screening Mammogram of both breasts in [address] [facility] will attempt to contact patient to return for supplemental views and ultrasound if indicated. Patient should continue monthly self-breast exams. A clinical breast exam by your physician is recommended on an annual basis. This exam should not preclude additional follow-up of suspicious palpable abnormalities. Note on Brenda scores and lifetime risk: 1. A Brenda score greater than 3% is considered moderate risk. If this is the case, consider specialist referral to assess eligibility for a risk reducing agent. 2. If overall lifetime risk for the development of breast cancer is 20% or higher, the patient may qualify for future screening with alternating mammogram and breast MRI. Electronically signed and approved by: Flaco Barakat DO
--- NOTE | 2023-03-19 12:08 | BD ---
EXAMINATION TYPE: Axial Bone Density DATE OF EXAM: 03/17/2023 CLINICAL HISTORY: 72 years old Female. ICD-10 CODE: N95.8 OTHER CHATO DISORDERS Height: 61.5 in Weight: 148 lbs FRAX RISK QUESTIONS: Secondary Osteoporosis: 4. Malnutrition: ulcerative colitis RISK FACTORS HISTORY OF: Active: yes Postmenopausal woman: age 49 Take estrogen and/or progesterone medications: not now How lon years MEDICATIONS: Additional Medications: ulcerative colitis meds, blood pressure meds, arthritis meds, pain meds, slee p aid meds EXAM MEASUREMENTS: Bone mineral densitometry was performed using the [employer]. Bone mineral density as measured about the Lumbar spine is: ----- L1-L4(G/cm2): 1.349 T Score Values are as follows: ----- L1: -0.6 ----- L2: 0.4 ----- L3: 3.2 ----- L4: 1.8 ----- L1-L4: 1.4 Z Score Values are as follows: ----- L1: 1.0 ----- L2: 2.1 ----- L3: 4.9 ----- L4: 3.4 ----- L1-L4: 3.1 Bone mineral density has: Increased 0.2% since study of: 04/22/2009 Bone mineral density about the R hip (g/cm2): 0.875 Bone mineral density about the L hip (g/cm2): 0.953 T Score values are as follows: -----R Neck: -1.3 -----L Neck: -1.3 -----R Total: -1.1 -----L Total: -0.4 Z Score values are as follows: -----R Neck: 0.5 -----L Neck: 0.5 -----R Total: 0.5 -----L Total: 1.2 Bone mineral density has: Decreased -5.3% since study of: 04/22/2009 FRAX%s: The graph provided illustrates a 10.3% chance for a major osteoporotic fx and a 1.7% chance f or the hips probability for fx in 10 years time. IMPRESSION: Osteopenia (T Score between -2.5 and -1). There is slightly increased risk of fracture and the patient may be considered for treatment. Re-Screen 2-5 years. NOTE: T-SCORE=SD OF THE YOUNG ADULT MEAN.
== END | disposition home or self-care (01) ==
LOC: RADBDWWP 08:17
PROVIDERS: ATTEND Internal Medicine
DX: Z12.31 Encounter for screening mammogram for malignant neoplasm of breast (principal); N95.8 Other specified menopausal and perimenopausal disorders; M85.89 Other specified disorders of bone density and structure, multiple sites; Z80.3 Family history of malignant neoplasm of breast; Z78.0 Asymptomatic menopausal state
CPT/HCPCS: 77063; 77067; 77080

== ENCOUNTER → 2023-12-20 | Outpatient (CLI) | payer MEDICARE ==
--- NOTE | 2023-12-20 13:27 | XR ---
EXAMINATION TYPE: XR cervical spine comp DATE OF EXAM: 12/20/2023 COMPARISON: None HISTORY: Increasing cervicalgia, numbness bilateral hands TECHNIQUE: 5 view cervical spine FINDINGS: Odontoid is very limited with overlying occiput. There is loss of disc height at C4-5 C5-6 C6-7 slightly less at C7-T1. Anterior vertebral body spurri ng is present through these levels. Some posterior endplate spurring may be present C4-5 C5-6 C6-7. P osterior spinal lamellar line is intact. There is mild foraminal narrowing C4-5 on the right. There is incomplete rotation on the left. Howeve r, severe foraminal stenosis cannot be excluded C3-4 C4-5 C5-6. Some vascular calcification may be at the carotid bifurcations. IMPRESSION: 1. Suggestion of severe left foraminal stenosis. However, positioning is suboptimal. Follow-up MRI c an be performed as clinically indicated. 2. Advanced degenerative disc changes with disc height loss C4-5 through C7-T1. [facility], , 12/20/2023 1:24 PM
== END | disposition home or self-care (01) ==
LOC: RADXRYALE 13:05
PROVIDERS: ATTEND Internal Medicine
DX: M54.2 Cervicalgia
CPT/HCPCS: 72050

== ENCOUNTER → 2024-07-12 | Outpatient (CLI) | payer MEDICARE ==
[2024-07-12 14:30] LABS: Appearance,Urine Clear (Clear); Bilirubin,Urine Negative (Negative); Blood,Urine Negative (Negative); Color,Urine Light Yellow; Glucose,Urine (UA) Negative (Negative); Ketones,Urine Negative (Negative); Leukocyte Esterase,Urine Negative (Negative); Nitrite,Urine Negative (Negative); Protein,Urine Negative (Negative); Specific Gravity,Urine 1.016 (1.001-1.035); Urobilinogen,Urine <2.0 mg/dL (<2.0)
--- NOTE | 2024-07-12 14:39 | XR ---
EXAMINATION TYPE: XR chest 2V DATE OF EXAM: 07/12/2024 CLINICAL INDICATION: Female, 73 years old with history of Z01.818 pre adm testing, TECHNIQUE: Frontal and lateral views of the chest are obtained. COMPARISON: None FINDINGS: There is no focal air space opacity, pleural effusion, or pneumothorax seen. The cardiac silhouette size is upper limits of normal. Exaggerated curvature thoracolumbar junction is present. IMPRESSION: No acute cardiopulmonary process. [facility], , 07/12/2024 2:36 PM
[2024-07-12 14:42] LABS: INR 0.9 (<1.2); Partial Thromboplastin Time 22.6 sec (22.0-30.0); Prothrombin Time 10.5 sec (10.0-12.5)
[2024-07-12 18:05] LABS: HGB 14.3 g/dL (12.0-15.0); MCH 32.8 pg (27.0-32.0); MCHC 33.3 g/dL (32.0-37.0); MCV 98.6 FL (80.0-97.0); Mean Platelet Volume 11.8 FL (9.5-12.2); NRBC Per 100 WBC 0 X 10*3/uL (0.00-0.01); Platelet Count 229 X 10*3/uL (140-440); RBC 4.36 X 10*6/uL (4.10-5.20); RDW 13.1 % (11.5-14.5); WBC 6.67 X 10*3/uL (4.50-10.00)
[2024-07-12 18:06] LABS: Basophils # (A) 0.04 X 10*3/uL (0.00-0.10); Basophils % (A) 0.6 %; Eosinophils # (A) 0.17 X 10*3/uL (0.04-0.35); Eosinophils % (A) 2.5 %; Lymphocytes # (A) 1.38 X 10*3/uL (0.90-5.00); Lymphocytes % (A) 20.7 %; Monocytes % (A) 7.5 %; Neutrophils # (A) 4.55 X 10*3/uL (1.80-7.70); Neutrophils % (A) 68.3 %
[2024-07-12 18:18] LABS: BUN/Creat Ratio 17.36 Ratio (12.00-20.00); Blood Urea Nitrogen 19.1 mg/dL (9.0-27.0); Calcium 9.5 mg/dL (8.7-10.3); Carbon Dioxide 26.2 mmol/L (21.6-31.8); Chloride 105 mmol/L (96-109); Glucose 107 mg/dL (70-110); Potassium 4.5 mmol/L (3.5-5.5); Sodium 142 mmol/L (135-145)
== END | disposition home or self-care (01) ==
LOC: LABPAT 13:33
PROVIDERS: ATTEND Orthopaedic Surgery Orthopaedic Surgery of the Spine
DX: Z01.818 Encounter for other preprocedural examination (principal); M50.00 Cervical disc disorder with myelopathy, unspecified cervical region; R00.1 Bradycardia, unspecified; Z22.322 Carrier or suspected carrier of Methicillin resistant Staphylococcus aureus
CPT/HCPCS: 71046; 80048; 81003; 85025; 85610; 85730; 86850; 86900; 86901; 87070; 87086; 93005

== ENCOUNTER 2024-08-02 09:45 | Inpatient (IN) | payer MEDICARE ==
[2024-07-27 15:17] VITALS: BMI 29.2
[~2024-08-02 09:45] MED LIST changes: +DEXAMETHASONE SOD PHOSPHATE 4 MG/ML 1 ML VIAL IV ONE; +HYDROmorphone 0.5 MG/0.5 ML SYRINGE IVP PRN; -LACTATED RINGERS 1,000 ML IV SCH; -LIDOCAINE 1% (10MG/ML) FOR IV START INTRADERMA PRN; +ONDANSETRON 4 MG/2 ML VIAL IVP ONE; +fentaNYL (PF) 50 MCG/ML 2 ML AMP IV PRN
[2024-08-09] MEDS ORDERED: LIDOCAINE 1% (10MG/ML) FOR IV START INTRADERMA PRN (05:33)
[2024-08-09] MEDS: IV FLUID CONTINUATION 1,000 ML IV ONE ×3 (07:25)
[2024-08-09] MEDS: ONDANSETRON 4 MG/2 ML VIAL IVP ONE (08:11)
[2024-08-09] MEDS: LACTATED RINGERS 1,000 ML IV SCH ×2 (08:12)
[2024-08-09] MEDS: BUPIVACAINE (PF) 0.5% 30 ML VIAL SQ ONE ×2 (09:08→09:45)
[2024-08-09] MEDS: LIDOCAINE 2%-EPI 1:100,000 20 ML VIAL SQ ONE ×2 (09:08→09:45)
[2024-08-09] MEDS ORDERED: ROCURONIUM 10 MG/ML (5 ML VIAL) IV ONE (09:09)
[2024-08-09] MEDS ORDERED: NEOSTIGMINE 1 MG/ML 10 ML VIAL ONE (09:09)
[2024-08-09] MEDS ORDERED: PHENYLEPHRINE-0.9% NACL SYG 1,000 MCG/10 ML SYRINGE ONE (09:09)
[2024-08-09] MEDS ORDERED: DEXAMETHASONE SOD PHOSPHATE 10 MG/ML 1 ML VIAL ONE (09:09)
[2024-08-09] MEDS ORDERED: SUCCINYLCHOLINE CHLORIDE 200 MG/10 ML VIAL IV ONE (09:09)
[2024-08-09] MEDS ORDERED: GLYCOPYRROLATE 0.2 MG/ML 2 ML VIAL ONE (09:09)
[2024-08-09] MEDS ORDERED: ePHEDrine 50 MG/ML 1 ML VIAL ONE (09:09)
[2024-08-09] MEDS: ceFAZolin 1,000 MG in SODIUM CHLORIDE 0.9% 1,000 ML IRRIGATION ONE (09:09)
[2024-08-09] MEDS ORDERED: fentaNYL (PF) 50 MCG/ML 2 ML AMP ONE (09:09)
[2024-08-09] MEDS: THROMBIN (BOVINE) 5,000 UNIT VIAL TOPICAL ONE ×2 (09:09→09:45)
[2024-08-09] MEDS ORDERED: PROPOFOL 10 MG/ML 20 ML VIAL IV ONE (09:09)
--- NOTE | 2024-08-09 10:20 | XR ---
EXAMINATION TYPE: XR cervical spine limited DATE OF EXAM: 08/09/2024 10:12 AM INDICATION: Patient age:Female; 73 years old; Reason for study: NEEDLE PLACEMENT; PHH, pain COMPARISON: Cervical spine radiograph 12/20/2023 TECHNIQUE: The cervical spine was imaged in the single lateral projection. FINDINGS/Impression: Only the C1-C5 vertebral bodies identified. No visualized acute fracture. Appropriate alignment of th e visualized cervical spine. The lower cervical spine is poorly visualized due to the shoulders. Mult ilevel degenerative changes of the visualized cervical spine with disc space narrowing, endplate scle rosis and anterior osteophytosis. The anterior approach needle is identified at the mid C5 vertebral level. Endotracheal tube identified. [facility], , 08/09/2024 10:17 AM
[2024-08-09] MEDS: LACTATED RINGERS 1,000 ML IV ONE (11:44)
--- NOTE | 2024-08-09 11:53 | XR ---
EXAMINATION TYPE: XR cervical spine 1V DATE OF EXAM: 08/09/2024 11:44 AM INDICATION: Patient age:Female; 73 years old; Reason for study: HARDWARE PLACMENT; PHH, pain COMPARISON: Cervical spine radiograph 08/09/2024, 12/20/2023 TECHNIQUE: The cervical spine was imaged in single lateral projection. FINDINGS/IMPRESSION: Postsurgical changes from ACDF involving C4-C7. Hardware appears intact with appropriate alignment. E xpected prevertebral soft tissue thickening. No acute fracture. Endotracheal tube demonstrated. [facility], , 08/09/2024 11:51 AM
[2024-08-09] MEDS ORDERED: ONDANSETRON 4 MG/2 ML VIAL IVP PRN (11:57)
[2024-08-09] MEDS ORDERED: BENZOCAINE/MENTHOL LOZENG 1 EACH LOZENGE MUCOUS MEM PRN (11:57)
[2024-08-09] MEDS ORDERED: traMADol 50 MG TAB PO PRN (11:57)
[2024-08-09] MEDS ORDERED: HYDROmorphone 0.5 MG/0.5 ML SYRINGE IVP PRN (11:57)
--- NOTE | 2024-08-09 12:03 | P.OP ---
Date of Procedure: 08/09/24 Preoperative Diagnosis: Severe cervical stenosis, cervical myelopathy, herniated nucleus pulposus C4-5 C5-6 C6-7, degenerative disc disease, upper extremity colopathy, upper extremity weakness Postoperative Diagnosis: Same Anesthesia: GETA Pathology: none sent Condition: stable Disposition: PACU Description of Procedure: BRIEF OPERATIVE NOTE Preoperative Diagnosis:Severe cervical stenosis, cervical myelopathy, herniated nucleus pulposus C4-5 C5-6 C6-7, degenerative disc disease, upper extremity colopathy, upper extremity weakness Postoperative Diagnosis:Severe cervical stenosis, cervical myelopathy, herniated nucleus pulposus C4-5 C5-6 C6-7, degenerative disc disease, upper extremity colopathy, upper extremity weakness Procedure: Anterior cervical decompression with discectomy and fusion C4-5 C5-6 C6-7 Placement of interbody graft C4-5 C5-6 C6-7 Application of anterior cervical plate C4-5-6 and 7 Surgeon: Dr. Graf Pharm[facility] General Manager: Jake ABDUL who is present throughout the entire the case persistence during positioning, dissection, exposure, visualization, and all crucial elements of the case as well as closure. Anesthesia: General anesthesia per Dr. Gordon Estimated blood loss: Approximately 150 cc Complications: None apparent Components implanted: K2M [place] anterior cervical plate system with screws measuring 3.5 mm in diameter and 14 mm in length width of Vikos interbody allograft bone graft and 1 cc of DBX bone putty to supplement the bone graft Disposition: To recovery room in good stable condition. OPERATIVE INDICATIONS The patient has had long-standing issues in their neck and upper extremities. She has been having worsening over the past few months and has been noticing changes in her dexterity in her hands and some of her balance. She noticed some weakness particular at the right upper extremity. She was found to have evidence of severe changes at her cervical spine with severe stenosis and was demonstrating symptoms of cervical myelopathy. The patient has been through conservative treatment. We discussed various treatment options including surgery, and the patient wishes to proceed with surgery We discussed the risk, patient's alternatives and benefits of surgery including but not limited to, risk of bleeding risk of infection, risk of need for further surgery, risk of decreased, loss of motion, muscle function, malunion nonunion, hardware failure, nerve damage, paralysis, heart attack, and . OPERATIVE SUMMARY After discussing all the risks, patient alternatives and benefits at length, the patient elected to proceed with surgical intervention, signed informed consent, and presented for their procedure. The patient was seen and examined in the preoperative holding area and the surgical site was marked. The patient was given antibiotics and brought to the operating room. The patient was positioned on the operating room table in a supine position being careful to pad any bony prominences and pressure points. The patient was sedated and intubated by anesthesia in standard fashion. Once the airway and C- spine were stabilized the patient's arms were padded and tucked at her side, with her shoulders gently taped. The head was placed in a donut pad with the neck in good neutral alignment and position. We were careful to maintain the patient's cervical spine and good neutral alignment and position throughout. The patient was prepped and draped in a normal standard fashion. An appropriate timeout and keystone protocol performed. We were able to proceed with the surgery. The local wound area was infiltrated with local anesthetic. An incision was made transversely approximately 2-1/2 cm over the appropriate levels at C5-6. Dissection was taken down subcutaneously to the level of the platysma which was split in line with its fibers. Dissection was taken with a carotid approach, with the trachea and esophagus medial and the carotid sheath laterally. We dissected down to the anterior surface of the vertebral bodies. Intraoperative x-ray was taken which showed a marker at the appropriate level. With the appropriate level positively confirmed, we were able to proceed with discectomy at the appropriate levels at C4-5 C5-6 and C6-7. All of the operative levels were exposed appropriately. The patient had all their twitches back, and there was no evidence of recurrent laryngeal issue. The wound was copiously irrigated and suctioned dry as had been done periodically throughout the case. The patient had large anterior cervical osteophytes at each of the levels and these were taken down with a rongeur. This was done at C4-5 C5-6 and C6-7. At the appropriate level/levels, starting at C6-7 and then moving to C5-6 and then C4-5 I established an annulotomy with an 11 blade scalpel. A discectomy was performed with a combination of pituitary rongeurs, curettes, a high-speed bur, and Kerrison rongeurs. The disc had been ground down and was nearly nonexistent at each of the levels and there was severe disc loss. The posterior longitudinal ligament was taken down as were any posterior osteophytes. This gave good central and bilateral foraminal decompression. There is no evidence of any dural tear or leak. The endplates were prepared with a high-speed bur. With the endplates in good parallel position, I was able to size for the appropriate size interbody graft. The wound was irrigated and suctioned dry the graft was prepared and malleted into position. It had good alignment and position with the anterior surface flush with the anterior surface of the vertebral bodies. This was done similarly the appropriate levels at C6-7 C5-6 and C4-5. With the grafts intact, I was able to measure and contour and appropriate sized plate. The plate was positioned at the midline over the appropriate levels at C4-5-6 and 7. Screw holes were established with a hand drill and drill guide. Screws were placed in good alignment and position with excellent bony purchase. They were seated under the locking device. The construct was checked and found to be stable. Intraoperative x-ray was taken which showed good alignment and position of the implants at the appropriate levels. There was no evidence of any dural tear or leak. Good hemostasis was maintained. The wound was copiously irrigated and suctioned dry as had been done periodically throughout the case. The platysma was closed with absorbable suture. The subcutaneous tissue was closed. The subcuticular tissue was closed with absorbable suture. The wound was cleaned and dried and dressed appropriately. A soft cervical collar was placed appropriately. The patient was woken up by anesthesia, extubated, transferred back gently to their hospital bed and brought to the recovery room in good stable condition. The patient will be admitted to the hospital for appropriate postoperative care, medical management and monitoring. We will continue to follow them closely about the postoperative course.
[2024-08-09] MEDS: HYDROmorphone 0.5 MG/0.5 ML SYRINGE IVP PRN (12:25)
[2024-08-09] MEDS: DEXAMETHASONE SOD PHOSPHATE 4 MG/ML 1 ML VIAL IV ONE (13:28)
[2024-08-09] MEDS: SODIUM CHLORIDE 0.9% 1,000 ML IV SCH (13:42)
[2024-08-09] MEDS: BALSALAZIDE DISODIUM 750 MG CAPSULE PO SCH (17:53)
[2024-08-09] MEDS: ceFAZolin 2 GM in DEXTROSE 5% IN WATER 50 ML IVPB SCH (17:57)
[2024-08-09] MEDS: ZOLPIDEM 5 MG TAB PO SCH (22:05)
[2024-08-09] MEDS: METOPROLOL SUCCINATE (ER) 50 MG TAB.ER.24H PO SCH (22:06)
[2024-08-09] MEDS: LOSARTAN 50 MG TAB PO SCH (22:06)
[2024-08-09] MEDS: HYDROcodone/APAP 5-325MG 1 EACH TAB PO PRN (22:09)
[2024-08-10 02:19] VITALS: PULSE 71; RESP 20
--- NOTE | 2024-08-10 08:14 | P.DS ---
Providers Date of admission: 08/09/24 06:52 Attending physician: Thea Graf Primary care physician: Moni [place] Hospital Course: The patient presented on the day of admission as per their operative note. She feels that her arms are already doing better. She feels she has more strength in her hands already. Her pains been controlled with oral medications this morning. She is tolerating her diet well. She has been up to void without any issues. Her neck is sore but she is managing adequately Physical Exam The incision site is clean dry and intact. There is no erythema no drainage. There is no purulence no evidence of infection. There is mild diffuse swelling without any tension. There is no erythema. There are some bruising which appears stable. There is no tension around her neck. It is soft and supple Abdomen soft and nontender. Chest has good excursion with deep inspiration and expiration. The patient has active and passive range of motion intact at the upper and lower extremities. There is no acute change in neurologic status. She has good motion in her bilateral upper extremities. Hospital Course Postop day #1 status post anterior cervical decompression with discectomy and fusion C4-5 C5-6 C6-7 for her cervical stenosis with cervical myelopathy and upper extremity weakness. The patient has been making good progress postoperatively. She feels she is already making progress with her upper extremities. They have completed the prophylactic antibiotics without any signs or symptoms of infection. The patient has been able to advance their diet, and is tolerating diet adequately. The pain was initially controlled with IV medications and is now controlled appropriately with oral medications. The patient has been able to increase their mobilization. The patient has progressed appropriately. I think they are in good stable condition for discharge today. They will be sent home with appropriate prescriptions. I answered their questions to the best of my ability in a language that they can understand and they are agreeable with the plan. They will follow up as directed in approximately 2 weeks as scheduled or sooner if she is having problems. Patient Condition at Discharge: Good Plan - Discharge Summary Discharge Rx Participant: No New Discharge Prescriptions: New HYDROcodone/APAP 5-325MG [Holden 5-325] 1 tab PO Q6HR PRN #28 tab PRN Reason: Pain No Action Zolpidem Tartrate [Ambien] 5 mg PO HS Metoprolol Succinate [Toprol Xl] 50 mg PO BID Meloxicam [Mobic] 7.5 mg PO QAM Mesalamine [Lialda] 2.5 gm PO BID traMADol HCL [Ultram] 50 mg PO TID amLODIPine [Norvasc] 5 mg PO QAM Losartan [Cozaar] 50 mg PO HS Vitamin B Complex 1 each PO DAILY Discharge Medication List Meloxicam [Mobic] 7.5 mg PO QAM 06/30/18 [History] Mesalamine [Lialda] 2.5 gm PO BID 06/30/18 [History] Metoprolol Succinate [Toprol Xl] 50 mg PO BID 06/30/18 [History] Zolpidem Tartrate [Ambien] 5 mg PO HS 06/30/18 [History] traMADol HCL [Ultram] 50 mg PO TID 08/11/18 [History] Losartan [Cozaar] 50 mg PO HS 10/07/22 [History] amLODIPine [Norvasc] 5 mg PO QAM 10/07/22 [History] Vitamin B Complex 1 each PO DAILY 07/27/24 [History] HYDROcodone/APAP 5-325MG [Holden 5-325] 1 tab PO Q6HR PRN #28 tab 08/10/24 [Rx] Follow up Appointment(s)/Referral(s): Thea Graf DO [Doctor of Osteopathic Medicine] - 2 Weeks (As scheduled) Activity/Diet/Wound Care/Special Instructions: Keep site clean. May shower with waterproof Tegaderm intact. Do not soak in a tub. After 72 hours postoperatively, patient May remove dressing and then may shower with area uncovered. Leave glue intact and allow it to fray off on its own. May ambulate as tolerated. Avoid heavy or rigorous activity. No repetitive bending twisting or lifting. No overhead work. Discharge Disposition: HOME SELF-CARE
[2024-08-10] MEDS: amLODIPine 5 MG TAB PO SCH (08:52)
[2024-08-10] MEDS ORDERED: NON FORMULARY DRUG (Vitamin B Complex [Vitamin B Complex] 1 EACH Capsule) PO SCH (09:00)
[2024-08-10 09:29] VITALS: BP 160/92; TEMP 98
== END 2024-08-10 10:52 | disposition home or self-care (01) | DRG 472 ==
LOC: EDSTATUS 09:45 → 2ORMAIN 08-09 06:52 → 4SSUR 08-09 12:34
PROVIDERS: ADMIT Orthopaedic Surgery Orthopaedic Surgery of the Spine; ATTEND Orthopaedic Surgery Orthopaedic Surgery of the Spine
PROC: 0RG20K0 Fusion of 2 or more Cervical Vertebral Joints with Nonautologous Tissue Substitute, Anterior Approach, Anterior Column, Open Approach (ICD-10-PCS; principal; 2024-08-09 08:40)
PROC: 00NW0ZZ Release Cervical Spinal Cord, Open Approach (ICD-10-PCS; principal; 2024-08-09 08:40)
PROC: 0RB30ZZ Excision of Cervical Vertebral Disc, Open Approach (ICD-10-PCS; principal; 2024-08-09 08:40)
PROC: 01N10ZZ Release Cervical Nerve, Open Approach (ICD-10-PCS; principal; 2024-08-09 08:40)
DX: M50.021 Cervical disc disorder at C4-C5 level with myelopathy (principal); G95.89 Other specified diseases of spinal cord; L40.50 Arthropathic psoriasis, unspecified; I10 Essential (primary) hypertension; K51.90 Ulcerative colitis, unspecified, without complications; M47.12 Other spondylosis with myelopathy, cervical region; M47.22 Other spondylosis with radiculopathy, cervical region; M48.02 Spinal stenosis, cervical region; M50.022 Cervical disc disorder at C5-C6 level with myelopathy; E78.5 Hyperlipidemia, unspecified; M50.023 Cervical disc disorder at C6-C7 level with myelopathy; M79.7 Fibromyalgia; M25.78 Osteophyte, vertebrae; N28.9 Disorder of kidney and ureter, unspecified; Z79.1 Long term (current) use of non-steroidal anti-inflammatories (NSAID); Z79.891 Long term (current) use of opiate analgesic; Z79.899 Other long term (current) drug therapy; Z96.651 Presence of right artificial knee joint
CPT/HCPCS: 72020; 72040

== ENCOUNTER → 2024-08-04 | Outpatient (CLI) | payer MEDICARE | END | disposition home or self-care (01) | LOC: LABPAT 13:27 | PROVIDERS: ATTEND Orthopaedic Surgery Orthopaedic Surgery of the Spine | DX: Z01.812 Encounter for preprocedural laboratory examination (principal) | CPT/HCPCS: 86850; 86900; 86901 ==